=== PATIENT | male | born 1960 | race Caucasian/White ===

== ENCOUNTER 2020-08-11 12:08 | Day surgery (SDC) | payer BC ==
[2020-08-07 13:09] LABS: BASOPHILS % (AUTO) 0.4 % (0-1); EOSINOPHILS # (AUTO) 0.1 X10'3 (0-0.9); EOSINOPHILS % (AUTO) 1.2 % (0-6); HEMATOCRIT 41.4 % (42.0-52.0); HEMOGLOBIN 14.3 g/dl (14.0-17.9); LYMPHOCYTES # (AUTO) 1.4 X10'3 (1.1-4.8); LYMPHOCYTES % (AUTO) 29.4 % (21-51); MEAN CORPUSCULAR HEMOGLOBIN 31.8 PG (27.0-31.0); MEAN CORPUSCULAR HGB CONC 34.6 g/dL (33.0-36.5); MEAN PLATELET VOLUME 8.9 FL (7.4-10.4); MONOCYTES # (AUTO) 0.5 X10'3 (0-0.9); NEUTROPHILS # (AUTO) 2.8 X10'3 (1.8-7.7); PLATELET COUNT 231 X10'3 (140-440); RED BLOOD COUNT 4.51 X10'6 (4.70-6.10); RED CELL DISTRIBUTION WIDTH 12.5 % (11.5-14.5); WHITE BLOOD COUNT 4.7 X10'3 (4.5-11.0)
[2020-08-07 13:17] LABS: ALBUMIN 3.9 G/DL (3.4-5.0); ANION GAP 7 (8-16); BLOOD UREA NITROGEN 9 MG/DL (7-18); BUN/CREATININE RATIO 11.1 (5.4-32.0); CALCIUM 9.3 MG/DL (8.5-10.1); CHLORIDE 105 MMOL/L (99-107); CREATININE 0.81 MG/DL (0.60-1.10); GLUCOSE 94 MG/DL (70-104); SODIUM 142 MMOL/L (135-145); TOTAL CARBON DIOXIDE 30.1 MMOL/L (24-32); eGFR > 90 ML/MIN
[2020-08-07 13:21] LABS: PARTIAL THROMBOPLASTIN TIME 26 SECONDS (22-32)
[~2020-08-11] VITALS: Ht 177.8 cm; Wt 85.9 kg
[2020-08-11] VITALS (9 sets, daily range): BP systolic 106–136; BP diastolic 68–83
[~2020-08-11 12:08] MED LIST: ASCO500W7 PO; ASPI-1 PO; ATOR10TA87 PO; CLOP75TA35 PO; GLUC-133 PO; LISI1TAB51 PO; METO25TA6 PO; NITR0.4T51 SL; PANT-47 PO; SAW/1TAB2 PO; UBID1CAP54 PO; VIT1TABL83 PO
[2020-08-11] MEDS ORDERED: acetylcysteine 200 MG/ml 4ml vial PO PRN (12:50)
[2020-08-11] MEDS ORDERED: diphenhydrAMINE 25mg capsule PO PRN (12:50)
[2020-08-11] MEDS ORDERED: normal saline 1,000 ML IV SCH ×2 (12:50→15:10)
[2020-08-11] MEDS ORDERED: ASPI-611 PO (13:16)
[2020-08-11] MEDS ORDERED: CLOP75TA15 PO (13:19)
[2020-08-11] MEDS ORDERED: METO25TA6 PO (13:21)
[2020-08-11] MEDS ORDERED: NITR0.4T51 SL (13:22)
[2020-08-11] MEDS ORDERED: SILD25TA PO (13:24)
[2020-08-11] MEDS ORDERED: PSYL575P22 PO (13:27)
[2020-08-11] MEDS ORDERED: FLO0.4C PO (13:28)
[2020-08-11] MEDS ORDERED: vitamin d3 PO (13:31)
[2020-08-11] MEDS ORDERED: LORazepam 0.5 MG tablet PO ONE (13:35)
[2020-08-11] MEDS ORDERED: midazolam 2 mg/2 ml injection ONE (13:39)
[2020-08-11] MEDS ORDERED: fentaNYL/PF 50MCG/1 ML 2ML syringe ONE (13:39)
[2020-08-11] MEDS ORDERED: LIDOcaine 1% (10mg/ml)w/preservative injection 20ml MDV ONE (13:39)
[2020-08-11] MEDS ORDERED: verapamil 2.5 mg/ml inj IV ONE (13:39)
[2020-08-11] MEDS ORDERED: heparin 1,000unit/ml 10ml vial 10 ML ONE (13:40)
[2020-08-11] MEDS ORDERED: iohexol 350 MG/ML 50ML vial IV ONE ×2 (13:40→14:33)
[2020-08-11] MEDS ORDERED: nitroGLYCERIN-Tridil 50MG/D5W 250 ML IV ONE (13:40)
[2020-08-11] MEDS ORDERED: iohexol 350MG/ML 100ml bottle IV ONE (13:40)
[2020-08-11] MEDS ORDERED: heparin 1,000 UNITS/NS 500ml 500 ML ONE (14:05)
--- NOTE | 2020-08-11 16:30 | NUR ---
VASCULAR BAND REMOVED, CLEANSED WITH STERILE 4X4 AND NS, STERILE 2X2 AND TEGADERM APPLIED. TOPPED WITH FOLDED 4X4 AND COFLEX, PT AWARE MAY ADJUST TOP DRSG FOR COMFORT NEEDED. UNDER DRSG, TEGADERM TO REMAIN UNTIL SHOWER. 24-48HOURS. Addendum: 08/11/20 at 1646 by Suzan Whittington RN Amended: Links added.
== END 2020-08-11 18:55 | disposition home or self-care (01) ==
LOC: SSTAY O 12:08
PROVIDERS: ATTEND Internal Medicine Cardiovascular Disease
DX: R94.39 Abnormal result of other cardiovascular function study (principal); I25.10 Atherosclerotic heart disease of native coronary artery without angina pectoris; I10 Essential (primary) hypertension; I25.2 Old myocardial infarction; E78.5 Hyperlipidemia, unspecified; Z95.5 Presence of coronary angioplasty implant and graft; Z79.899 Other long term (current) drug therapy; Z79.82 Long term (current) use of aspirin; Z79.01 Long term (current) use of anticoagulants; Z87.891 Personal history of nicotine dependence; Z72.89 Other problems related to lifestyle; Z82.49 Family history of ischemic heart disease and other diseases of the circulatory system
CPT/HCPCS: 36415; 76937; 80048; 85025; 85610; 85730; 93005; 93458; 99152; 99153; C1769; C1894; J1644; J2001; J2250; J3010; J7030; Q0163; Q9967; A4620; A5120; A6258; J3490

== ENCOUNTER 2021-12-04 07:54 | Inpatient (IN) | payer BC ==
[2021-12-04] VITALS (9 sets, daily range): BP systolic 103–149; BP diastolic 61–84
[~2021-12-04] VITALS: Ht 177.8 cm; Wt 82.3 kg
[~2021-12-04 07:54] MED LIST changes: -ASCO500W7 PO; -ASPI-1 PO; +ASPI-611 PO; +CLOP75TA15 PO; -CLOP75TA35 PO; +FLO0.4C PO; +LOP25T PO; -METO25TA6 PO; -PANT-47 PO; +PSYL575P22 PO; -SAW/1TAB2 PO; +SILD25TA PO; +vitamin d3 PO
[2021-12-04 08:15] LABS: BASOPHILS % (AUTO) 0.4 % (0-1); EOSINOPHILS # (AUTO) 0.1 X10'3 (0-0.9); EOSINOPHILS % (AUTO) 2.6 % (0-6); HEMATOCRIT 42.9 % (42.0-52.0); HEMOGLOBIN 14.8 g/dl (14.0-17.9); LYMPHOCYTES # (AUTO) 1.4 X10'3 (1.1-4.8); LYMPHOCYTES % (AUTO) 27.3 % (21-51); MEAN CORPUSCULAR HEMOGLOBIN 31.9 PG (27.0-31.0); MEAN CORPUSCULAR HGB CONC 34.5 g/dL (33.0-36.5); MEAN CORPUSCULAR VOLUME 92.5 FL (78-98); MEAN PLATELET VOLUME 8.9 FL (7.4-10.4); MONOCYTES # (AUTO) 0.5 X10'3 (0-0.9); MONOCYTES % (AUTO) 9.4 % (2-12); NEUTROPHILS % (AUTO) 60.3 % (42-75); PLATELET COUNT 170 X10'3 (140-440); RED BLOOD COUNT 4.64 X10'6 (4.70-6.10); RED CELL DISTRIBUTION WIDTH 12.9 % (11.5-14.5)
[2021-12-04 08:28] LABS: ALANINE AMINOTRANSFERASE 35 U/L (12-78); ALBUMIN 3.6 G/DL (3.4-5.0); ALBUMIN/GLOBULIN RATIO 1.1 (1.1-1.5); ALKALINE PHOSPHATASE 58 IU/L (46-116); ANION GAP 6 (8-16); ASPARTATE AMINO TRANSFERASE 22 U/L (10-37); BILIRUBIN,TOTAL 1.7 MG/DL (0.1-1.0); BLOOD UREA NITROGEN 10 MG/DL (7-18); BUN/CREATININE RATIO 14.5 (5.4-32.0); CALCIUM 8.9 MG/DL (8.5-10.1); CHLORIDE 108 MMOL/L (99-107); CREATININE 0.69 MG/DL (0.60-1.10); GLUCOSE 142 MG/DL (70-104); POTASSIUM 3.7 MMOL/L (3.5-5.1); SODIUM 141 MMOL/L (135-145); TOTAL CARBON DIOXIDE 26.6 MMOL/L (24-32); TOTAL PROTEIN 6.8 G/DL (6.4-8.2); eGFR > 90 ML/MIN
[2021-12-04] MEDS ORDERED: iohexol 350MG/ML 100ml bottle IV ONE ×2 (08:58→09:47)
[2021-12-04] MEDS ORDERED: CARV-50 PO (09:18)
[2021-12-04] MEDS ORDERED: aspirin 325mg tablet, delayed-release (Ecotrin) PO ONE (09:25)
[2021-12-04] MEDS ORDERED: nitroGLYCERIN-Tridil 50MG/D5W 250 ML IV ONE (09:46)
[2021-12-04] MEDS ORDERED: verapamil 2.5 mg/ml inj IV ONE (09:47)
[2021-12-04] MEDS ORDERED: iohexol 350 MG/ML 50ML vial IV ONE ×3 (09:47→12:37)
[2021-12-04] MEDS ORDERED: fentaNYL/PF 50MCG/1 ML 2ML syringe ONE (09:47)
[2021-12-04] MEDS ORDERED: midazolam 1 mg/ML 2ml injection ONE (09:47)
[2021-12-04] MEDS ORDERED: LIDOcaine 1% (10mg/ml)w/preservative inj. 20ml MDV ONE (09:47)
[2021-12-04] MEDS ORDERED: heparin 1,000unit/ml 10ml vial 10 ML ONE (09:47)
[2021-12-04] MEDS ORDERED: metoclopramide 5 mg/ml inj IV PRN (09:55)
[2021-12-04] MEDS ORDERED: potassium Cl 20 mEq SR tablet PO PRN ×2 (09:55)
[2021-12-04] MEDS ORDERED: acetaminophen 325mg tablet PO PRN ×2 (09:55)
[2021-12-04] MEDS ORDERED: magnesium hydroxide 30ml (MOM) UD suspension PO PRN (09:55)
[2021-12-04] MEDS ORDERED: nitroGLYCERIN 0.4mg SUBLingual tab SL PRN ×2 (09:55→10:00)
[2021-12-04] MEDS ORDERED: HYDROcodone/acetaminophen 5mg/325mg tablet PO PRN (09:55)
[2021-12-04] MEDS ORDERED: magnesium Cl slow-release 64mg tablet PO PRN (09:55)
[2021-12-04] MEDS ORDERED: ondansetron 4mg rapidly disintigrating tab PO PRN (09:55)
[2021-12-04] MEDS ORDERED: morphine 2 MG/ML inj. syringe IV PRN ×2 (09:55)
[2021-12-04] MEDS ORDERED: normal saline 1000ml 1,000 ML IV SCH ×2 (09:55→13:20)
[2021-12-04] MEDS ORDERED: HYDROcodone/acetaminophen 10/325mg tab PO PRN (09:55)
[2021-12-04] MEDS ORDERED: acetaminophen 650mg rectal suppository RC PRN (09:55)
[2021-12-04] MEDS ORDERED: mag hydrox/Alum hydrox/simeth 30ml oral suspension PO PRN (09:55)
[2021-12-04] MEDS ORDERED: magnesium 4gm in 100ml NS 100 ML IV PRN (09:55)
[2021-12-04] MEDS ORDERED: potassium CL 10mEq/100ml bag 100 ML IV PRN (09:55)
[2021-12-04] MEDS ORDERED: bisacodyl 10mg suppository rectal RC PRN (09:55)
[2021-12-04] MEDS ORDERED: ondansetron/PF 4mg/2ml inj IV PRN (09:55)
[2021-12-04] MEDS ORDERED: magnesium 2GM in 50ml NS 50 ML IV PRN (09:55)
[2021-12-04 10:26] LABS: MAGNESIUM 2.1 MG/DL (1.5-2.4)
--- NOTE | 2021-12-04 11:45 | NUR ---
Pt with lab[facility] staff
--- NOTE | 2021-12-04 12:46 | NUR ---
assisting RN with pt care, report has been called to Karmen FIGUEROA, pt is in laboratory specialist
[2021-12-04] MEDS ORDERED: normal saline 1000ml 1,000 ML IV ONE (13:43)
--- NOTE | 2021-12-04 18:30 | NUR ---
Problems reprioritized. Patient report given, questions answered & plan of care reviewed with Juany amezquita pt stable at transfer of care.
[2021-12-04] MEDS ORDERED: carvedilol 6.25mg tablet PO SCH (20:00)
[2021-12-04] MEDS: K and/or MAG REPLACEMENT MC SCH (20:00)
[2021-12-04] MEDS: carVEDilol 12.5mg tablet PO SCH ×2 (20:00→20:29)
[2021-12-04] MEDS ORDERED: tamsulosin 0.4mg capsule PO SCH (21:00)
[2021-12-04] MEDS ORDERED: temazepam 15mg capsule PO PRN (21:00)
[2021-12-05 02:00] VITALS: BP 121/69
[2021-12-05 06:00] VITALS: BP 147/84
--- NOTE | 2021-12-05 06:30 | NUR ---
Patient in room PCU [id number]. I have received report from Juany FIGUEROA and had the opportunity to ask questions and assume patient care.
[2021-12-05 06:38] LABS: HEMOGLOBIN 13.6 g/dl (14.0-17.9); MEAN CORPUSCULAR HEMOGLOBIN 32.4 PG (27.0-31.0); MEAN CORPUSCULAR HGB CONC 34.9 g/dL (33.0-36.5); MEAN CORPUSCULAR VOLUME 92.9 FL (78-98); MEAN PLATELET VOLUME 9.1 FL (7.4-10.4); PLATELET COUNT 153 X10'3 (140-440); RED CELL DISTRIBUTION WIDTH 12.7 % (11.5-14.5); WHITE BLOOD COUNT 6.4 X10'3 (4.5-11.0)
[2021-12-05 07:04] LABS: ALBUMIN 3.2 G/DL (3.4-5.0); ANION GAP 7 (8-16); BLOOD UREA NITROGEN 10 MG/DL (7-18); BUN/CREATININE RATIO 16.7 (5.4-32.0); CALCIUM 8.4 MG/DL (8.5-10.1); CHLORIDE 110 MMOL/L (99-107); CHOL/HDL RATIO 2.5 (0.00-4.99); CHOLESTEROL 140 MG/DL (0-200); GLUCOSE 101 MG/DL (70-104); HDL CHOLESTEROL 56 MG/DL (35-60); LDL CHOLESTEROL 68 MG/DL (50-100); MAGNESIUM 2.1 MG/DL (1.5-2.4); POTASSIUM 3.8 MMOL/L (3.5-5.1); SODIUM 143 MMOL/L (135-145); TOTAL CARBON DIOXIDE 26.1 MMOL/L (24-32); TRIGLYCERIDES 104 MG/DL (20-135); eGFR > 90 ML/MIN
[2021-12-05] MEDS: K and/or MAG REPLACEMENT MC SCH (08:00)
[2021-12-05] MEDS ORDERED: non-formulary drug (Aspirin (Aspir 81) 1 TAB) PO SCH (08:00)
[2021-12-05] MEDS ORDERED: HYDROchlorothiazide 12.5mg capsule PO SCH (08:00)
[2021-12-05] MEDS ORDERED: clopidogrel 75mg tablet PO SCH (08:00)
[2021-12-05] MEDS: carVEDilol 12.5mg tablet PO SCH (08:00)
[2021-12-05] MEDS ORDERED: vitamin B comp w/Vit. C tab 1 TAB TABLET PO SCH (08:00)
[2021-12-05] MEDS ORDERED: cholecalciferol (vitamin D3) 1,000 unit (25mcg) tablet PO SCH (08:00)
[2021-12-05] MEDS ORDERED: aspirin 81mg, enteric-coated 1 TAB TABLET.DR PO SCH (08:00)
[2021-12-05] MEDS ORDERED: atorvastatin 20mg tablet PO SCH (08:00)
[2021-12-05] MEDS ORDERED: lisinopril 20mg tablet PO SCH (08:00)
[2021-12-05 08:23] VITALS: BP_SYST 137
--- NOTE | 2021-12-05 16:45 | NUR ---
Patient stable for discharge per Dr. Lund orders. All discharge orders reviewed and all questions answered. No new precriptions ordered, just continue all current home meds. PIV discontinued, cannula intact. Tele discontinued. Belongings collected and sent with patient. Patient wheeled to lobby via nursing staff and picked up by private vehicle.
[2021-12-05] MEDS ORDERED: carVEDilol 3.125mg tablet PO SCH (20:00)
[2021-12-06] MEDS ORDERED: lisinopril 10 MG tablet PO SCH (08:00)
== END 2021-12-05 12:35 | disposition home or self-care (01) | DRG 287 ==
LOC: ER 07:55 → ED HOLD 09:56 → PCU 3S 13:10
PROVIDERS: ADMIT Family Medicine; ATTEND Family Medicine
PROC: 4A023N7 Measurement of Cardiac Sampling and Pressure, Left Heart, Percutaneous Approach (ICD-10-PCS; principal; 2021-12-04)
PROC: B2111ZZ Fluoroscopy of Multiple Coronary Arteries using Low Osmolar Contrast (ICD-10-PCS; 2021-12-04)
PROC: B2151ZZ Fluoroscopy of Left Heart using Low Osmolar Contrast (ICD-10-PCS; 2021-12-04)
PROC: B3101ZZ Fluoroscopy of Thoracic Aorta using Low Osmolar Contrast (ICD-10-PCS; 2021-12-04)
DX: I25.119 Atherosclerotic heart disease of native coronary artery with unspecified angina pectoris (principal); E78.5 Hyperlipidemia, unspecified; I10 Essential (primary) hypertension; K21.9 Gastro-esophageal reflux disease without esophagitis; M54.9 Dorsalgia, unspecified; R00.1 Bradycardia, unspecified; I44.0 Atrioventricular block, first degree; F17.220 Nicotine dependence, chewing tobacco, uncomplicated; I25.2 Old myocardial infarction; Z82.49 Family history of ischemic heart disease and other diseases of the circulatory system; Z95.5 Presence of coronary angioplasty implant and graft; Z79.899 Other long term (current) drug therapy; Z71.6 Tobacco abuse counseling
CPT/HCPCS: 36415; 71045; 76937; 80048; 80053; 80061; 83735; 83880; 84484; 85025; 85027; 87081; 93005; 93458; 99152; 99153; 99285; A4620; A5120; A6258; C1769; C1894; G0378; J1644; J2250; J3010; J3490; J7030; Q9967